=== PATIENT | male | born 1980 | race Two or more races ===

== ENCOUNTER 2020-09-15 10:04 | Emergency (ER) | payer OTHER, SELFPAY ==
[~2020-09-15] VITALS: Ht 175.3 cm; Wt 129.0 kg
--- NOTE | 2020-09-15 10:48 | NUR ---
Pt assessed, placed on quality assurance monitor final, IV started and labs drawn
[2020-09-15] MEDS ORDERED: HYDROmorphone 2 MG/ML, 1ML ONE (10:59)
[2020-09-15] MEDS ORDERED: HYDROmorphone 2 MG/ML, 1ML IVPush PRN (11:00)
[2020-09-15] MEDS ORDERED: SODIUM CHLORIDE FLUSH 10ML SYR IVF ONE (11:00)
--- NOTE | 2020-09-15 11:06 | NUR ---
TASK RN: MEDICATED FOR PAIN, UA SENT
[2020-09-15 11:11] LABS: BASOPHILS % (AUTO) 0 % (0-1); EOSINOPHILS % (AUTO) 0 % (1-7); LYMPHOCYTES % (AUTO) 33 % (22-44); MEAN CORPUSCULAR HEMOGLOBIN 31.8 pg (27.5-34.5); MEAN CORPUSCULAR HGB CONC 33.7 g/dL (33.2-36.2); MEAN PLATELET VOLUME 9.6 fL (7.4-10.4); MONOCYTES % (AUTO) 7 % (2-9); NEUTROPHILS % (AUTO) 60 % (42-75); PLATELET COUNT 131 x10^3/uL (130-400); RED BLOOD COUNT 5.23 x10^6/uL (4.38-5.82); RED CELL DISTRIBUTION WIDTH 13.1 % (9.4-14.8)
[2020-09-15 11:13] LABS: MD NO
[2020-09-15 11:16] LABS: ALANINE AMINOTRANSFERASE 46 U/L (12-78); ALBUMIN 3.9 g/dL (3.4-5.0); ANION GAP 5 mmol/L (5-15); CALCIUM 8.8 mg/dL (8.5-10.1); CHLORIDE 109 mmol/L (98-107)
[2020-09-15 11:19] LABS: ALKALINE PHOSPHATASE 69 U/L (45-117); BILIRUBIN,TOTAL 0.5 mg/dL (0.2-1.0); TOTAL PROTEIN 8.3 g/dL (6.4-8.2)
[2020-09-15 11:26] LABS: MICROSCOPIC INDICATED
--- NOTE | 2020-09-15 12:05 | NUR ---
TASK RN: US AT BEDSIDE
--- NOTE | 2020-09-15 12:08 | NUR ---
Ultrasound at [facility].
--- NOTE | 2020-09-15 12:45 | NUR ---
All results back. Pt calm and cooperative. No pain at this time.
[2020-09-15 12:48] VITALS: BP 122/69
--- NOTE | 2020-09-15 14:07 | NUR ---
Patient discharged hoem. pateint is aware of the importance of taking pepcid and prilosec as written. Pt aware not to eat fancy cheses or sushi until treatment completed. pt ambulates with even steady agit in no acute distress to discharge lounge.
== END 2020-09-15 14:08 | disposition home or self-care (01) ==
LOC: ED 12:25
DX: K29.00 Acute gastritis without bleeding (principal); R10.13 Epigastric pain; R50.9 Fever, unspecified; R94.31 Abnormal electrocardiogram [ECG] [EKG]
CPT/HCPCS: 36415; 71045; 76700; 80053; 81001; 83690; 85025; 87086; 93005; 96374; 99285; J1170

== ENCOUNTER 2021-02-25 06:04 | Emergency (ER) | payer OTHER ==
[~2021-02-25] VITALS: Ht 175.3 cm; Wt 129.0 kg
--- NOTE | 2021-02-25 06:44 | NUR ---
Report to Kaushal IBRAHIM
--- NOTE | 2021-02-25 06:45 | NUR ---
PT SITTING ON JUNIOR GUERRA/ANDREA. FRIENDS AT BS. CALL LIGHT WITHIN REACH. NO NEEDS AT THIS TIME
--- NOTE | 2021-02-25 06:50 | NUR ---
XRAY AT BS
[2021-02-25 07:02] LABS: BASOPHILS % (AUTO) 1 % (0-1); EOSINOPHILS % (AUTO) 1 % (1-7); LYMPHOCYTES % (AUTO) 38 % (22-44); MEAN CORPUSCULAR HEMOGLOBIN 32.2 pg (27.5-34.5); MEAN CORPUSCULAR HGB CONC 34.4 g/dL (33.2-36.2); MEAN PLATELET VOLUME 9.3 fL (7.4-10.4); MONOCYTES % (AUTO) 10 % (2-9); NEUTROPHILS % (AUTO) 50 % (42-75); PLATELET COUNT 178 x10^3/uL (130-400); RED BLOOD COUNT 4.44 x10^6/uL (4.38-5.82); RED CELL DISTRIBUTION WIDTH 13.5 % (9.4-14.8)
[2021-02-25 07:10] LABS: ALBUMIN 3.6 g/dL (3.4-5.0); ANION GAP 7 mmol/L (5-15); CALCIUM 8.7 mg/dL (8.5-10.1); CHLORIDE 110 mmol/L (98-107); CREATININE 1.03 mg/dL (0.7-1.3)
[2021-02-25 07:14] LABS: TROPONIN I < 0.015 ng/mL (0.000-0.045)
--- NOTE | 2021-02-25 08:00 | NUR ---
PT RESTING ON GURNEY, WATCHING TV. NADN/VSS. PT STATES PAIN IN CHEST HAS DECREASED. FRIENDS AT BS. NO NEEDS AT THIS TIME. CALL LIGHT WITHIN REACH.
--- NOTE | 2021-02-25 08:01 | NUR ---
AT TO UPDATE PT ON POC
[2021-02-25 08:55] VITALS: BP 114/68
--- NOTE | 2021-02-25 08:55 | NUR ---
PT AMBULATORY TO BR WITH UPRIGHT STEADY GAIT.
[2021-02-25 09:12] LABS: TROPONIN I < 0.015 ng/mL (0.000-0.045)
--- NOTE | 2021-02-25 09:48 | NUR ---
Patient given discharge instructions and they have confirmed that they understand the instructions. Patient ambulatory with steady gait.
== END 2021-02-25 09:49 | disposition home or self-care (01) ==
LOC: ED 09:46
DX: R07.89 Other chest pain (principal); R00.2 Palpitations
CPT/HCPCS: 36415; 71045; 80048; 82040; 83880; 84484; 85025; 85379; 93005; 99285